=== PATIENT | male | born 1990 | race Caucasian/White ===

== ENCOUNTER 2022-03-06 19:13 | Inpatient (IN) | payer MEDICAID ==
[~2022-03-06] VITALS: Ht 175.3 cm; Wt 79.4 kg
[~2022-03-06 19:13] MED LIST: DIVA-80 PO; QUET200T PO
[2022-03-06] MEDS ORDERED: HALOPERIDOL LACTATE 5 MG/ML VIAL IM ONE (20:15)
[2022-03-06] MEDS ORDERED: LORazepam 2 MG/ML VIAL IM ONE (20:15)
[2022-03-06] MEDS ORDERED: DiphenhydrAMINE HCL 50 MG/ML VIAL IM ONE (20:15)
[2022-03-06 22:02] LABS: COVID AG,FIA SOURCE NASAL SWAB
[2022-03-07] MEDS ORDERED: HALOPERIDOL 5 MG TABLET PO PRN (04:00)
[2022-03-07] MEDS ORDERED: LORazepam 2 MG TABLET PO PRN (04:00)
[2022-03-07 11:49] LABS: APPEARANCE,URINE CLEAR (CLEAR); BILIRUBIN,URINE NEGATIVE (NEGATIVE); GLUCOSE, URINE (UA) NEGATIVE (NEGATIVE); LEUKOCYTE ESTERASE ,URINE NEGATIVE (NEGATIVE); NITRATE,URINE NEGATIVE (NEGATIVE); OCCULT BLOOD,URINE NEGATIVE (NEGATIVE); PROTEIN,URINE TRACE mg/dL (NEGATIVE); SPECIFIC GRAVITIY, URINE 1.016 (1.003-1.030); UROBILINOGEN,URINE <=1.0 mg/dL (<=1.0)
[2022-03-07 12:04] LABS: BACTERIA,URINE None Seen /HPF (None Seen); RBC,URINE None Seen /HPF (0-2); SQUAMOUS EPITHELIAL CELL,UR Few /LPF (None Seen); WBC,URINE 0-2 /HPF (0-5)
[2022-03-07] MEDS ORDERED: DiphenhydrAMINE HCL 50 MG CAPSULE PO PRN (19:30)
[2022-03-07 19:33] VITALS: BP 162/82
[2022-03-07] MEDS ORDERED: IBUPROFEN 600 MG TABLET ONE (23:53)
[2022-03-08] MEDS ORDERED: ChlorproMAZINE HCL 50 MG/2 ML AMP ONE (03:58)
[2022-03-08] MEDS ORDERED: LORazepam 2 MG/ML VIAL ONE (03:58)
[2022-03-08] MEDS ORDERED: ChlorproMAZINE HCL 50 MG/2 ML AMP IM ONE (04:00)
[2022-03-08] MEDS ORDERED: LORazepam 2 MG/ML VIAL IM ONE ×2 (04:00→12:30)
[2022-03-08] MEDS ORDERED: IBUPROFEN 600 MG TABLET PO PRN (06:00)
[2022-03-08] MEDS ORDERED: DOCUSATE SODIUM 100 MG CAPSULE PO PRN (06:45)
[2022-03-08] MEDS ORDERED: GuaiFENesin/D-METHORPHAN [SUGAR-FREE] 200-20MG/10 ML SYRUP UDCUP PO PRN (06:45)
[2022-03-08] MEDS ORDERED: IBUPROFEN 400 MG TABLET PO PRN (06:45)
[2022-03-08] MEDS ORDERED: ACETAMINOPHEN 325 MG TABLET PO PRN (06:45)
[2022-03-08] MEDS ORDERED: PETROLATUM,WHITE 28 GM JELLY TP PRN (06:45)
[2022-03-08] MEDS ORDERED: ONDANSETRON HCL 4 MG TABLET PO PRN (06:45)
[2022-03-08] MEDS ORDERED: ALBUTEROL SULFATE HFA 90 MCG/PUFF 8 GM INHALER IH PRN (06:45)
[2022-03-08] MEDS ORDERED: MAGNESIUM HYDROXIDE SUSPENSION 30 ML UDCUP PO PRN (06:45)
[2022-03-08] MEDS ORDERED: LOPERAMIDE HCL 2 MG CAPSULE PO PRN (06:45)
[2022-03-08] MEDS ORDERED: NICOTINE 14 MG/24 HOUR PATCH TD PRN (06:45)
[2022-03-08] MEDS ORDERED: CloNIDine HCL 0.1 MG TABLET PO PRN (06:45)
[2022-03-08] MEDS ORDERED: MAG HYDROX/AL HYDROX/SIMETH ES 30 ML SUSPENSION UDCUP PO PRN (06:45)
[2022-03-08] MEDS: OLANZapine 10 MG TABLET PO SCH ×2 (09:30→17:00)
[2022-03-08] MEDS: DIVALPROEX SODIUM 500 MG DR TABLET PO SCH ×2 (09:30→17:00)
[2022-03-08] MEDS ORDERED: HALOPERIDOL LACTATE 5 MG/ML VIAL ONE (12:27)
[2022-03-08] MEDS ORDERED: DiphenhydrAMINE HCL 50 MG/ML VIAL ONE (12:28)
[2022-03-08] MEDS ORDERED: DiphenhydrAMINE HCL 50 MG/ML VIAL IM ONE (12:30)
[2022-03-08] MEDS ORDERED: HALOPERIDOL LACTATE 5 MG/ML VIAL IM ONE (12:30)
[2022-03-08 16:15] VITALS: BP 142/80
[2022-03-09] MEDS: ZOLPIDEM TARTRATE 10 MG TABLET PO PRN ×2 (02:02→21:47)
[2022-03-09 04:41] VITALS: BP 144/84
[2022-03-09 08:27] VITALS: BP 136/85
[2022-03-09] MEDS: OLANZapine 10 MG TABLET PO SCH ×2 (08:45→17:00)
[2022-03-09] MEDS: DIVALPROEX SODIUM 500 MG DR TABLET PO SCH ×2 (08:45→17:00)
[2022-03-09] MEDS ORDERED: LORazepam 2 MG/ML VIAL ONE (11:29)
[2022-03-09] MEDS ORDERED: HALOPERIDOL LACTATE 5 MG/ML VIAL ONE (11:30)
[2022-03-09] MEDS ORDERED: DiphenhydrAMINE HCL 50 MG/ML VIAL ONE (11:30)
[2022-03-09] MEDS ORDERED: DiphenhydrAMINE HCL 50 MG/ML VIAL IM ONE ×2 (12:00→19:00)
[2022-03-09] MEDS ORDERED: LORazepam 2 MG/ML VIAL IM ONE ×2 (12:00→19:00)
[2022-03-09] MEDS ORDERED: HALOPERIDOL LACTATE 5 MG/ML VIAL IM ONE ×2 (12:00→19:00)
[2022-03-09 16:21] VITALS: BP 140/72
[2022-03-10] MEDS: OLANZapine 10 MG TABLET PO SCH ×2 (09:00→16:36)
[2022-03-10] MEDS: DIVALPROEX SODIUM 500 MG DR TABLET PO SCH ×2 (09:00→16:36)
[2022-03-10 16:14] VITALS: BP 140/96
[2022-03-11] MEDS ORDERED: BENZTROPINE MESYLATE 1 MG/ML 2 ML VIAL ONE (01:45)
[2022-03-11] MEDS ORDERED: BENZTROPINE MESYLATE 1 MG/ML 2 ML VIAL IM ONE (01:45)
[2022-03-11 03:24] VITALS: BP 151/83
[2022-03-11 08:18] VITALS: BP 155/106
[2022-03-11 08:30] VITALS: BP 146/97
[2022-03-11] MEDS: OLANZapine 10 MG TABLET PO SCH ×2 (09:00→17:00)
[2022-03-11] MEDS: DIVALPROEX SODIUM 500 MG DR TABLET PO SCH ×2 (09:00→17:00)
[2022-03-11 16:37] VITALS: BP 127/82
[2022-03-12 03:54] VITALS: BP 121/68
[2022-03-12] MEDS: OLANZapine 10 MG TABLET PO SCH (09:00)
[2022-03-12] MEDS: DIVALPROEX SODIUM 500 MG DR TABLET PO SCH (09:00)
[2022-03-12] MEDS ORDERED: DIVA-112 PO (15:28)
[2022-03-12] MEDS ORDERED: OLAN10TA74 PO (15:29)
== END 2022-03-12 16:16 | disposition left against medical advice (07) | DRG 750 ==
LOC: EMS 19:13 → B3A 03-07 13:35
PROVIDERS: ADMIT Psychiatry & Neurology Child & Adolescent Psychiatry; ATTEND Psychiatry & Neurology Child & Adolescent Psychiatry
DX: F25.0 Schizoaffective disorder, bipolar type (principal); Z91.19 Patient's noncompliance with other medical treatment and regimen; F10.10 Alcohol abuse, uncomplicated; F31.9 Bipolar disorder, unspecified; I10 Essential (primary) hypertension; F41.9 Anxiety disorder, unspecified; R10.13 Epigastric pain; Z53.29 Procedure and treatment not carried out because of patient's decision for other reasons; Z20.822 Contact with and (suspected) exposure to COVID-19; Y90.9 Presence of alcohol in blood, level not specified; Z71.41 Alcohol abuse counseling and surveillance of alcoholic
CPT/HCPCS: 81001; 99291; J0515; J1200; J1630; J2060; J3230